=== PATIENT | female | born 1970 | race Hispanic/Latino ===

== ENCOUNTER 2018-12-09 10:27 | Emergency (ER) | payer OTHER ==
[2018-12-09 11:06] LABS: APPEARANCE,URINE Clear (CLEAR); BILIRUBIN,URINE Negative (NEGATIVE); COLOR,URINE Yellow (YELLOW); GLUCOSE, URINE (UA) >=1000 mg/dL (NEGATIVE); KETONES,URINE 40 mg/dL (NEGATIVE); LEUKOCYTE ESTERASE ,URINE Small (NEGATIVE); NITRATE,URINE Negative (NEGATIVE); OCCULT BLOOD,URINE Negative (NEGATIVE); PROTEIN,URINE Negative (NEGATIVE)
[2018-12-09 11:11] LABS: BASOPHILS % (AUTO) 0.3 % (0.0-5.0); EOSINOPHILS % (AUTO) 0.3 % (0.0-8.0); HEMATOCRIT 39.3 % (36-48); LYMPHOCYTES % (AUTO) 15.4 % (21.0-51.0); MEAN CORPUSCULAR HEMOGLOBIN 30.7 pg (27.0-33.0); MEAN CORPUSCULAR HGB CONC 33.6 g/dL (32.0-36.0); MEAN CORPUSCULAR VOLUME 91.6 fL (79-99); MONOCYTES % (AUTO) 5.5 % (3.0-13.0); NEUTROPHILS % (AUTO) 78.5 % (40.0-77.0); PLATELET COUNT (AUTO) 285 K/uL (130-400); RED BLOOD CELL COUNT(AUTO) 4.29 MIL/uL (4.00-5.50); RED CELL DISTRIBUTION WIDTH 13.6 % (11.0-15.5); WHITE BLOOD COUNT (AUTO) 9.4 K/uL (4.8-10.8)
[2018-12-09] MEDS ORDERED: ONDANSETRON HCL 4 MG/2 ML VIAL ONE (11:11)
[2018-12-09] MEDS ORDERED: SODIUM CHLORIDE 0.9% 1000ML 1,000 ML IV ONE (11:11)
[2018-12-09] MEDS ORDERED: KETOROLAC TROMETHAMINE 30MG/ML ONE (11:11)
[2018-12-09 11:14] LABS: CREATININE 0.7 mg/dL (0.5-1.5); POTASSIUM 3.7 mmol/L (3.5-5.1)
[2018-12-09 11:18] LABS: BILIRUBIN,TOTAL 0.5 mg/dL (0.2-1.0)
[2018-12-09 11:36] LABS: BACTERIA,URINE Few /HPF (None Seen); RBC,URINE None Seen /HPF (0-1); SQUAMOUS EPITHELIAL CELL,UR 0-2 /HPF (0-2); WBC,URINE 26-50 /HPF (0-1)
[2018-12-09] MEDS ORDERED: INSULIN HUMULIN R 100 UNIT/ML 3ML ONE (11:58)
== END 2018-12-09 12:52 | disposition home or self-care (01) ==
LOC: EDH 10:27
DX: N30.00 Acute cystitis without hematuria (principal); E11.65 Type 2 diabetes mellitus with hyperglycemia; R10.11 Right upper quadrant pain
CPT/HCPCS: 36415; 76705; 80053; 81001; 81025; 82009; 82948; 83690; 85025; 96361; 96374; 96375; 99284; J1815; J1885; J2405; J7030

== ENCOUNTER 2020-11-08 09:23 | Emergency (ER) | payer BC, OTHER ==
[~2020-11-08] VITALS: Ht 160 cm; Wt 72.6 kg
[2020-11-08 09:50] VITALS: BP 134/77
[2020-11-08 10:35] LABS: BASOPHILS % (AUTO) 0.7 % (0.0-5.0); EOSINOPHILS % (AUTO) 1.3 % (0.0-8.0); HEMATOCRIT 45.8 % (36-48); LYMPHOCYTES % (AUTO) 35.7 % (21.0-51.0); MEAN CORPUSCULAR HEMOGLOBIN 30.2 pg (27.0-33.0); MEAN CORPUSCULAR HGB CONC 31.7 g/dL (32.0-36.0); MEAN CORPUSCULAR VOLUME 95.4 fL (79-99); MONOCYTES % (AUTO) 7.9 % (3.0-13.0); NEUTROPHILS % (AUTO) 54.1 % (40.0-77.0); PLATELET COUNT (AUTO) 333 K/uL (130-400)
[2020-11-08 10:43] LABS: CARBON DIOXIDE 30 mmol/L (21-32); CHLORIDE 102 mmol/L (101-111); CREATININE 0.5 mg/dL (0.5-1.5); GLOMERULAR FILTR. RATE CALC 138 mL/min (>60); GLUCOSE,RANDOM 195 mg/dL (70-105); POTASSIUM 4.3 mmol/L (3.5-5.1); SODIUM SERUM 139 mmol/L (136-145); UREA NITROGEN, BLOOD 17 mg/dL (7-18)
[2020-11-08 10:49] LABS: INR 0.94 (0.85-1.15); PROTHROMBIN TIME 10.3 SEC (9.6-11.6)
[2020-11-08 11:01] LABS: B-TYPE NATRIURETIC PEPTIDE 24 pg/mL (0-100)
[2020-11-08 11:10] LABS: ALANINE AMINOTRANSFERASE 22 U/L (12-78); ALBUMIN 3.8 g/dL (3.5-5.0); ASPARTATE AMINOTRANSFERASE 21 U/L (10-37); BILIRUBIN,TOTAL 0.3 mg/dL (0.2-1.0); CREATINE KINASE, TOTAL 86 U/L (21-232); MYOGLOBIN 17 ng/mL (10-92); TOTAL PROTEIN, SERUM 8.1 g/dL (6.0-8.3); TROPONIN I < 0.04 ng/mL (0.00-0.06)
[2020-11-08 13:31] LABS: AMPHET/METH SCREEN,URINE NEGATIVE (NEGATIVE); BARBITURATE SCREEN, URINE NEGATIVE (NEGATIVE); BENZODIAZEPINES SCREEN,URINE NEGATIVE (NEGATIVE); CANNABINOID SCREEN,URINE NEGATIVE (NEGATIVE); COCAINE SCREEN,URINE NEGATIVE (NEGATIVE); OPIATE SCREEN,URINE NEGATIVE (NEGATIVE); PHENCYCLIDINE SCREEN,URINE NEGATIVE (NEGATIVE)
[2020-11-08] MEDS ORDERED: ALBUHFA IH (13:49)
[2020-11-08] MEDS ORDERED: AZIT500T2 PO (13:49)
== END 2020-11-08 14:02 | disposition home or self-care (01) ==
LOC: EDH 09:23
DX: J20.9 Acute bronchitis, unspecified (principal); F41.1 Generalized anxiety disorder; J45.909 Unspecified asthma, uncomplicated; E11.65 Type 2 diabetes mellitus with hyperglycemia; M79.7 Fibromyalgia
CPT/HCPCS: 36415; 71045; 80053; 80305; 82550; 83874; 83880; 84484; 85025; 85378; 85610; 93005

== ENCOUNTER 2021-11-14 11:26 | Observation (INO) | payer BC ==
[~2021-11-14] VITALS: Ht 157.5 cm; Wt 72.0 kg
[~2021-11-14 11:26] MED LIST: ALBUHFA IH; AZIT500T2 PO
[2021-11-14 12:05] LABS: BASOPHILS % (AUTO) 0.7 % (0.0-5.0); EOSINOPHILS % (AUTO) 2.1 % (0.0-8.0); LYMPHOCYTES % (AUTO) 40.4 % (21.0-51.0); MEAN CORPUSCULAR HEMOGLOBIN 30.2 pg (27.0-33.0); MEAN CORPUSCULAR HGB CONC 33.3 g/dL (32.0-36.0); MEAN CORPUSCULAR VOLUME 90.7 fL (79-99); MONOCYTES % (AUTO) 7.8 % (3.0-13.0); NEUTROPHILS % (AUTO) 48.7 % (40.0-77.0); PLATELET COUNT (AUTO) 273 K/uL (130-400); RED BLOOD CELL COUNT(AUTO) 4.74 MIL/uL (4.00-5.50); RED CELL DISTRIBUTION WIDTH 12.5 % (11.0-15.5); WHITE BLOOD COUNT (AUTO) 6.8 K/uL (4.8-10.8)
[2021-11-14 12:17] LABS: CREATININE 0.5 mg/dL (0.5-1.5); POTASSIUM 3.6 mmol/L (3.5-5.1)
[2021-11-14 12:19] LABS: INR 0.93 (0.85-1.15); PROTHROMBIN TIME 9.8 SEC (9.6-11.6)
[2021-11-14 12:20] LABS: PARTIAL THROMBOPLASTIN TIME 25.1 SEC (26.3-35.5)
[2021-11-14 12:23] LABS: ALBUMIN 3.5 g/dL (3.5-5.0); TOTAL PROTEIN, SERUM 7.3 g/dL (6.0-8.3)
[2021-11-14 13:06] LABS: B-TYPE NATRIURETIC PEPTIDE 41 pg/mL (0-100)
[2021-11-14] MEDS ORDERED: INSU300I3 SQ (16:13)
[2021-11-14] MEDS ORDERED: DAPA10TA PO (16:13)
[2021-11-14 19:57] LABS: APPEARANCE,URINE Clear (CLEAR); BILIRUBIN,URINE Negative (NEGATIVE); COLOR,URINE Yellow (YELLOW); GLUCOSE, URINE (UA) >=1000 mg/dL (NEGATIVE); KETONES,URINE Negative (NEGATIVE); LEUKOCYTE ESTERASE ,URINE Trace (NEGATIVE); NITRATE,URINE Negative (NEGATIVE); OCCULT BLOOD,URINE Negative (NEGATIVE); PROTEIN,URINE Negative (NEGATIVE); UROBILINOGEN,URINE 0.2 mg/dL (0.2-1.0)
[2021-11-14 20:11] LABS: BACTERIA,URINE Rare /HPF (None Seen); RBC,URINE 0-1 /HPF (0-1); SQUAMOUS EPITHELIAL CELL,UR Few /HPF (0-2); YEAST,URINE BUDDING Rare /HPF (None Seen)
[2021-11-14] MEDS ORDERED: IOHEXOL 350 MG/ML 100ML INFUS..BTL IV ONE (20:42)
[2021-11-14] MEDS ORDERED: GLUCAGON 1MG KIT 1 MG ML IM PRN (21:30)
[2021-11-14] MEDS ORDERED: DEXTROSE 50%-WATER 50 ML DISP.SYRIN IV PRN (21:30)
[2021-11-14] MEDS: FAMOTIDINE 20MG TAB PO SCH (21:46)
[2021-11-15 04:32] VITALS: BP 101/60
[2021-11-15 05:51] LABS: BASOPHILS % (AUTO) 0.4 % (0.0-5.0); EOSINOPHILS % (AUTO) 2.9 % (0.0-8.0); HEMATOCRIT 38.8 % (36-48); LYMPHOCYTES % (AUTO) 48.1 % (21.0-51.0); MEAN CORPUSCULAR HEMOGLOBIN 29.7 pg (27.0-33.0); MEAN CORPUSCULAR VOLUME 92.8 fL (79-99); MONOCYTES % (AUTO) 8.9 % (3.0-13.0); NEUTROPHILS % (AUTO) 39.4 % (40.0-77.0); PLATELET COUNT (AUTO) 269 K/uL (130-400); RED BLOOD CELL COUNT(AUTO) 4.18 MIL/uL (4.00-5.50); RED CELL DISTRIBUTION WIDTH 12.8 % (11.0-15.5); WHITE BLOOD COUNT (AUTO) 6.8 K/uL (4.8-10.8)
[2021-11-15] MEDS: INSULIN HUMULIN R 100 UNIT/ML 3ML SQ SCH ×3 (06:00→12:41)
[2021-11-15 06:01] LABS: CREATININE 0.6 mg/dL (0.5-1.5); POTASSIUM 3.6 mmol/L (3.5-5.1)
[2021-11-15 06:52] LABS: HEMOGLOBIN A1C 11.5 % (4.0-6.0)
[2021-11-15 08:00] VITALS: BP 91/55
[2021-11-15] MEDS ORDERED: CLOPIDOGREL 75MG TAB PO SCH (09:00)
[2021-11-15] MEDS ORDERED: ATORVASTATIN 40 MG TABLET PO SCH (09:00)
[2021-11-15] MEDS ORDERED: ASPIRIN 81MG CHEW TAB PO SCH (09:00)
[2021-11-15] MEDS ORDERED: FIORIT PO (10:01)
[2021-11-15] MEDS: FAMOTIDINE 20MG TAB PO SCH (10:58)
[2021-11-15 12:00] VITALS: BP 96/57
== END 2021-11-15 15:10 | disposition home or self-care (01) ==
LOC: EDH 11:26 → EDHIP 21:12 → INTOOBSV 21:12 → 3BH 11-15 04:02
PROVIDERS: ADMIT Internal Medicine; ATTEND Internal Medicine
DX: G45.9 Transient cerebral ischemic attack, unspecified (principal); E11.9 Type 2 diabetes mellitus without complications; F41.9 Anxiety disorder, unspecified; E78.5 Hyperlipidemia, unspecified; F44.9 Dissociative and conversion disorder, unspecified; G43.909 Migraine, unspecified, not intractable, without status migrainosus; I10 Essential (primary) hypertension; F19.20 Other psychoactive substance dependence, uncomplicated; I63.9 Cerebral infarction, unspecified; M79.7 Fibromyalgia; R29.810 Facial weakness; R32 Unspecified urinary incontinence; R29.704 NIHSS score 4; Z79.899 Other long term (current) drug therapy
CPT/HCPCS: 82550 ×2; 83721; 84484; 80053; 83880; 85025 ×2; 85610; 85730; 82948 ×4; 83605; 81001; 36415 ×2; 71045; 70450; 70496; 70498; 70551; 99291; 92522; 92610; 93005 ×2; 96372; 83036; 80061; 80048; 93306; 93356; 97161; G0378 ×18; Q9967

== ENCOUNTER 2024-11-29 20:35 | Emergency (ER) | payer BC ==
[~2024-11-29] VITALS: Ht 157.5 cm; Wt 59.4 kg
[~2024-11-29 20:35] MED LIST changes: -AZIT500T2 PO; +DAPA10TA PO; +FIORIT PO; +INSU300I3 SQ
[2024-11-29 21:30] LABS: IMMATURE GRANULOCYTE ABSOLUTE 0.02 K/uL (0-1); NUCLEATED RED BLOOD CELLS 0.0 % (0.0-0.19); PLATELET COUNT (AUTO) 269 K/uL (130-400); RED BLOOD CELL COUNT(AUTO) 4.17 MIL/uL (4.00-5.50); RED CELL DISTRIBUTION WIDTH 12.5 % (11.0-15.5); WHITE BLOOD COUNT (AUTO) 8.7 K/uL (4.8-10.8)
[2024-11-29 21:36] LABS: CREATININE 0.4 mg/dL (0.5-1.0); GLOMERULAR FILTR. RATE CALC 116.0 mL/min (>90); GLUCOSE,RANDOM 122.0 mg/dL (70-105); SODIUM SERUM 138.0 mmol/L (136-145); UREA NITROGEN, BLOOD 13.0 mg/dL (7-18)
--- NOTE | 2024-11-29 21:40 | HMCIMG ---
EXAM: Right lower extremity venous doppler ultrasound INDICATION: Toe collection TECHNIQUE: Belcher scale and color doppler flow images with spectral doppler of the lower extremity. REFERENCE EXAMINATION: None FINDINGS: The right common femoral, femoral and popliteal veins are normal in compressibility with spontaneous and phasic color flow. The right greater saphenous, and posterior tibial veins are patent. IMPRESSION: No visualized DVT /[place]
--- NOTE | 2024-11-29 22:39 | HMCIMG ---
EXAM: US Duplex (right) Lower Extremity Arteries. CLINICAL HISTORY: RLE toe color change. TECHNIQUE: Real-time ultrasound scan of the arteries of the right lower extremity with 2-D martinez scale, color Doppler flow, and spectral waveform analysis. COMPARISON: None provided. FINDINGS: COMMON FEMORAL ARTERY: PSV: 105 cm/sec. No occlusion or significant stenosis. Normal. Triphasic. SUPERFICIAL FEMORAL ARTERY: Proximal PSV: 101 cm/sec. No occlusion or significant stenosis. Normal. Triphasic. Mid PSV: 86 cm/sec. No occlusion or significant stenosis. Normal. Biphasic. Distal PSV: 76 cm/sec. No occlusion or significant stenosis. Normal. Biphasic. POPLITEAL ARTERY: Proximal PSV: 66 cm/sec. No occlusion or significant stenosis. Normal. Biphasic. Distal PSV: 76 cm/sec. No occlusion or significant stenosis. Normal. Biphasic. CALF ARTERIES: Posterior Tibial Artery PSV: 89 cm/sec. No occlusion or significant stenosis. Normal. Biphasic. Anterior Tibial Artery (distal) PSV: 69 cm/sec. No occlusion or significant stenosis. Normal. Biphasic. Dorsalis Pedis Artery PSV: 87 cm/sec. No occlusion or significant stenosis. Normal. Biphasic. IMPRESSION: No flow-limiting stenosis or occlusion in the right lower extremity. /[place]
[2024-11-29 23:10] VITALS: BP 149/75; PULSE 84; RESP 18; TEMP 98.5; O2SAT 99
--- NOTE | 2024-11-29 23:32 | ERN ---
General Chief Complaint: Toe Pain/Injury Stated Complaint: C/O PURPLISH COLOR TO RT 2ND TOE Time Seen by MD: 20:53 Time Seen by Midlevel: 20:53 Source: patient History of Present Illness Initial Comments 54-year-old female who presents to the emergency department due to a color change to her toe. Patient noticed the toe color change to purple of the 2nd toe right foot. Patient states the toe appeared normal this morning, when she arrived home from work she noticed a color change. Denies any direct injuries, trauma, lesions or further associated symptoms. Denies any pain. PMHx fibromyalgia, DM Allergies: Coded Allergies: No Known Allergies (Unverified Allergy, Unknown, 12/09/18) Home Meds Active Scripts Butalb/Acetaminophen/Caffeine (Fioricet) 1 Tab Tab, 1 TAB PO Q6HPRN PRN for for migraine headache, #30 TAB 0 Refills Prov:GIL ROLLE MD 11/15/21 Albuterol Sulfate (Ventolin Hfa/Proventil Hfa/Proair Hfa) 90 Mcg/Puff Puff, 1-2 PUFF IH Q4H, #1 INH Prov:ARPIT VALDEZ MD 11/08/20 Reported Medications Dapagliflozin Propanediol (Farxiga) 10 Mg Tablet, 10 MG PO ACBKFST, TAB 11/14/21 Insulin Glargine,Hum.rec.anlog (Toujeo Max Solostar) 300 Unit/1 Ml Insuln.pen, 80 UNIT SQ ACBKFST, SYRINGE 11/14/21 Past Medical History Past Medical History: Diabetes-Type II, Fibromyalgia, High Cholesterol Past Surgical History: Surgical History Other: CSECTION Family History Family History: DM Social History Social History: Negative ROS Dictation Constitutional: Negative for fever,chills, and weight loss Eyes: Negative for injury, pain,redness, and discharge ENT: Negative for injury,pain or swelling Cardiovascular: Negative for chest pain, palpitations, and edema Respiratory: Negative for shortness of breath, cough, and wheezing, Abdomen/GI: Negative for abdominal pain, nausea, vomiting, diarrhea, and constipation Back: Negative for injury and pain : Negative for painful urination, bleeding or discharge MS/Extremity: Negative for injury and deformity Skin: Positive for color change to the right foot 2nd toe Negative for rash, and discoloration Neuro: Negative for headache, weakness, numbness, tingling, and seizure Psych: Negative for suicide ideation, homicidal ideation, and hallucinations Physical Exam Physical Exam Dictation General: awake, alert, no acute distress Head/Face: Normocephalic, atraumatic Eyes: PERRL, EOMI, normal conjunctiva Neck: Supple, normal range of motion Cardiovascular: RRR, normal S1/S2 Respiratory: CTAB, no respiratory distress Skin: Warm, dry, normal turgor, no rash. Ecchymosis of the right foot 2nd toe MS/Extremity: Pulses equal, no cyanosis, neurovascular intact, FROM. Right foot 2nd toe normal range of motion, neurovascularly intact, no obvious deformities. Neuro: COAx4, GCS 15, strength 5/5, CN 2-12 intact, normal cerebellar exam, normal gait, Psych: Normal behavior, mood, and affect normal Results Laboratory and Microbiology Lab and Micro Result Laboratory Tests Test 11/29/24 21:21 White Blood Count 8.7 K/uL (4.8-10.8) Red Blood Count 4.17 MIL/uL (4.00-5.50) Hemoglobin 12.6 g/dL (12.0-16.0) Hematocrit 37.5 % (36-48) Mean Corpuscular Volume 89.9 fL (79-99) Mean Corpuscular Hemoglobin 30.2 pg (27.0-33.0) Mean Corpuscular Hemoglobin Concent 33.6 g/dL (32.0-36.0) Red Cell Distribution Width 12.5 % (11.0-15.5) Platelet Count 269 K/uL (130-400) Mean Platelet Volume 10.0 fL (7.5-10.5) Immature Granulocyte % (Auto) 0.2 % (0-1) Neutrophils (%) (Auto) 50.5 % (40.0-77.0) Lymphocytes (%) (Auto) 39.9 % (21.0-51.0) Monocytes (%) (Auto) 8.1 % (3.0-13.0) Eosinophils (%) (Auto) 0.7 % (0.0-8.0) Basophils (%) (Auto) 0.6 % (0.0-5.0) Neutrophils # (Auto) 4.4 K/uL (1.8-7.7) Lymphocytes # (Auto) 3.5 K/uL (1.0-4.8) Monocytes # (Auto) 0.7 K/uL (0.1-1.0) Eosinophils # (Auto) 0.06 K/uL (0.00-0.70) Basophils # (Auto) 0.05 K/uL (0.00-0.20) Absolute Immature Granulocyte (auto 0.02 K/uL (0-1) Nucleated Red Blood Cells 0.0 % (0.0-0.19) Sodium Level 138 mmol/L (136-145) Potassium Level 3.3 mmol/L (3.5-5.1) L Chloride Level 101 mmol/L (101-111) Carbon Dioxide Level 30 mmol/L (21-32) Blood Urea Nitrogen 13 mg/dL (7-18) Creatinine 0.4 mg/dL (0.5-1.0) L Glomerular Filtration Rate Calc 116 mL/min (>90) Random Glucose 122 mg/dL (70-105) H Total Calcium 9.1 mg/dL (8.5-10.1) Labs Reviewed?: Yes EKG/XRAY/US/CT/MRI X-RAY Comment REASON: toe ecchymosis ORDERING PHYSICIAN: DAREK GALDAMEZ PROCEDURE: FT 2VW RT - FOOT LIMITED 2VWS RT EXAM: CR Right Foot, 2 views. CLINICAL HISTORY: Toe ecchymosis. COMPARISON: None provided. FINDINGS: Questionable nondisplaced acute fracture around the distal tuft of the second toe distal phalanx with adjacent soft tissue swelling. Large plantar calcaneal enthesophyte. The remaining bones and joints are within normal limits. IMPRESSION: Questionable nondisplaced acute fracture around the distal tuft of the second toe distal phalanx with adjacent soft tissue swelling. /[place] DICTATED BY: HETAL ABREU Jr., MD DATE: 11/30/24 004 Ultrasound Comment REASON: RLE toe color change ORDERING PHYSICIAN: DAREK GALDAMEZ PROCEDURE: ART U LE - US ARTERIAL UNILA LOW EXT DUPL EXAM: US Duplex (right) Lower Extremity Arteries. CLINICAL HISTORY: RLE toe color change. TECHNIQUE: Real-time ultrasound scan of the arteries of the right lower extremity with 2-D martinez scale, color Doppler flow, and spectral waveform analysis. COMPARISON: None provided. FINDINGS: COMMON FEMORAL ARTERY: PSV: 105 cm/sec. No occlusion or significant stenosis. Normal. Triphasic. SUPERFICIAL FEMORAL ARTERY: Proximal PSV: 101 cm/sec. No occlusion or significant stenosis. Normal. Triphasic. Mid PSV: 86 cm/sec. No occlusion or significant stenosis. Normal. Biphasic. Distal PSV: 76 cm/sec. No occlusion or significant stenosis. Normal. Biphasic. POPLITEAL ARTERY: Proximal PSV: 66 cm/sec. No occlusion or significant stenosis. Normal. Biphasic. Distal PSV: 76 cm/sec. No occlusion or significant stenosis. Normal. Biphasic. CALF ARTERIES: Posterior Tibial Artery PSV: 89 cm/sec. No occlusion or significant stenosis. Normal. Biphasic. Anterior Tibial Artery (distal) PSV: 69 cm/sec. No occlusion or significant stenosis. Normal. Biphasic. Dorsalis Pedis Artery PSV: 87 cm/sec. No occlusion or significant stenosis. Normal. Biphasic. IMPRESSION: No flow-limiting stenosis or occlusion in the right lower extremity. /[place] DICTATED BY: HETAL ABREU Jr., MD DATE: 11/29/24 1189 REASON: RLE toe color change ORDERING PHYSICIAN: DAREK GALDAMEZ PROCEDURE: VENOUS UNI - US VENOUS DOPPLER UNILATERAL EXAM: Right lower extremity venous doppler ultrasound INDICATION: Toe collection TECHNIQUE: Belcher scale and color doppler flow images with spectral doppler of the lower extremity. REFERENCE EXAMINATION: None FINDINGS: The right common femoral, femoral and popliteal veins are normal in compressibility with spontaneous and phasic color flow. The right greater saphenous, and posterior tibial veins are patent. IMPRESSION: No visualized DVT /[place] DICTATED BY: NAZANIN BURCH MD DATE: 11/29/24 030 MDM MDM: Differential diagnosis: Fracture, contusion, vein/artery occlusion Rationale: 54-year-old female who presents to the emergency department due to a color change to her toe. Patient noticed the toe color change to purple of the 2nd toe right foot. Patient states the toe appeared normal this morning, when she arrived home from work she noticed a color change. Denies any direct injuries, trauma, lesions or further associated symptoms. Denies any pain. PMHx fibromyalgia, DM Physical examination ecchymosis noted to the right foot 2nd toe, neurovascularly intact, no tenderness, normal range of motion, no obvious deformities. Venous ultrasound negative for DVT. Arterial ultrasound shows no flow-limiting stenosis or occlusion in the right lower extremity. Patient continues to be in no pain. She was educated on findings and diagnosis. Advised to follow up with PCP. Return to the emergency department for any worsening symptoms. Patient verbalized understanding. Patient stable for discharge. There are no social concerns with this patient. I independently interpreted the test that were performed, results were reviewed by me and considered findings on radiology if ordered. Medical management and examination interpretation discussions were had by me wit h other qualified healthcare professionals as indicated for the patient's care. ED Course Orders Procedure Category Date Status Time Cbc With Differential LAB 11/29/24 Complete 21:03 Basic Metabolic Panel LAB 11/29/24 Complete 21:03 Us Venous Doppler US 11/29/24 Resulted Unilateral 21:03 Us Arterial Unila Low US 11/29/24 Resulted Ext Dupl 21:03 Foot Limited 2vws Rt RAD 11/29/24 Resulted 21:03 Vital Signs Date Time Temp Pulse Resp B/P (MAP) Pulse Ox O2 Delivery O2 Flow Rate FiO2 11/29/24 23:10 98.4 84 18 149/75 99 Room Air* 0 21 11/29/24 20:37 98.1 94 20 156/78 96 Room Air DX & DISP Disposition: Discharge Departure Impression: Primary Impression: Bruise of toe Condition: Stable Additional Instructions: Discharge home. Rest. Follow up with primary care in 24 hours. Return to the ER for any acute changes or worsening symptoms. If any medications were prescribed take as directed. Okay to continue home medications unless otherwise discussed during your visit in the emergency room today. Patient was also advised to follow-up with primary care physician in 1 to 2 days for continued monitoring. Referrals: TOM BRAVO MD (PCP) I performed the substantive portion of the visit. I have reviewed and personally made and approve the management plan that is documented in the notes by myself or the RONY. I acknowledge full responsibility for the patient's management plan. DAREK GALDAMEZ Nov 29, 2024 23:32
--- NOTE | 2024-11-29 23:42 | HMCIMG ---
EXAM: CR Right Foot, 2 views. CLINICAL HISTORY: Toe ecchymosis. COMPARISON: None provided. FINDINGS: Questionable nondisplaced acute fracture around the distal tuft of the second toe distal phalanx with adjacent soft tissue swelling. Large plantar calcaneal enthesophyte. The remaining bones and joints are within normal limits. IMPRESSION: Questionable nondisplaced acute fracture around the distal tuft of the second toe distal phalanx with adjacent soft tissue swelling. /[place]
== END 2024-11-29 23:42 | disposition home or self-care (01) ==
LOC: EDH 20:35
DX: S90.31XA Contusion of right foot, initial encounter (principal); E11.9 Type 2 diabetes mellitus without complications; E78.00 Pure hypercholesterolemia, unspecified; M79.7 Fibromyalgia; M79.661 Pain in right lower leg; X58.XXXA Exposure to other specified factors, initial encounter; Y93.89 Activity, other specified; Y92.89 Other specified places as the place of occurrence of the external cause; Y99.8 Other external cause status
CPT/HCPCS: 36415; 73620; 80048; 85025; 93926; 93971; 99285